=== PATIENT | female | born 1995 | race Two or more races ===

== ENCOUNTER 2024-04-24 12:34 | Emergency (ER) | payer OTHER, SELFPAY ==
[2024-04-24 12:37] VITALS: BP 127/86; PULSE 102; RESP 18; TEMP 36.6; O2SAT 97
--- NOTE | 2024-04-24 13:00 | PC.NURSE ---
PT NOW COMPLAINING OF CP
--- NOTE | 2024-04-24 13:04 | XR_ITS ---
Examination: CT abdomen and pelvis without contrast. Coronal 3-D reconstructions. Sagittal 2-D reconstructions. Date and time of exam:April 24, 2024 1502 hours Comparison June 2022 INDICATIONS: Left upper abdominal pain onset today CTDI: vol (mGy): 14 DLP: (mGycm): 865 Technique: Axial images of the abdomen have been obtained, 3 mm slice thickness Intravenous contrast material has not been administered. 2-D sagittal coronal reconstructions Low dose protocols were performed. One or more of the following dose reduction techniques were used; automated exposure control FINDINGS: Liver spleen intact No gallstones or pancreatic mass 2 mm mid to upper pole 1 mm lower pole nonobstructing left renal calculi, no hydronephrosis or ureteral calculi Aorta normal size No bowel obstruction Normal appendix No diverticulitis Multiple bilateral adnexal follicular type cysts Urinary bladder intact Intact osseous structures IMPRESSION: Tiny nonobstructing left renal calculi, no hydronephrosis or ureteral calculi Normal appendix Adnexal follicular cysts bilaterally
--- NOTE | 2024-04-24 13:05 | PD.EDRME ---
Rapid Medical Screening Exam RME Arrival date/time: 04/24/24 12:34 28-year-old female presents emergency department with abdominal pain with nausea and vomiting Chief Complaint: Abdominal Pain Time Seen by Provider: 04/24/24 12:47
[2024-04-24] MEDS: KETOROLAC INJ 30 MG/ML VIAL IM (13:22)
[2024-04-24] MEDS: METOCLOPRAMIDE INJ 5 MG/ML VIAL 2 ML 10 MG IM (13:23)
[2024-04-24 13:39] LABS: Basophils % (Auto) 0 % (0-2.5); Eosinophils % (Auto) 0 % (0-10); Hematocrit 44.9 % (36.0-46.0); Hemoglobin 15.5 g/dL (12.0-16.0); Immature Granulocytes % (Auto) 0 % (0-0); Immature Granulocytes Auto 0.02 Thou/mm3 (0.00-0.00); Lymphocytes # (Auto) 6.5 Thou/mm3 (1.0-4.8); Lymphocytes % (Auto) 51 % (10-50); Mean Corpuscular HGB Conc 34.5 g/dl (31.0-37.0); Mean Corpuscular Volume 84 fL (80-100); Monocytes # (Auto) 0.4 Thou/mm3 (0.0-0.8); Monocytes % (Auto) 3 % (0-12); Neutrophils # (Auto) 5.9 Thou/mm3 (1.8-7.7); Neutrophils % (Auto) 46 % (37-80); Nucleated Red Blood Cell % 0 /100 WBC (0); Platelet Count 394 Thou/mm3 (140-440); RDW Standard Deviation 38.8 fL (36.4-46.3); Red Blood Count 5.35 Miln/mm3 (4.00-5.20); White Blood Count 12.8 Thou/mm3 (3.6-11.0)
[2024-04-24 13:59] LABS: Alanine Aminotransferase 34 U/L (10-49); Albumin, Serum 5.1 gm/dL (3.5-5.0); Albumin/Globulin Ratio 1.5 (1.2-2.2); Alkaline Phosphatase 97 U/L (46-116); Anion Gap 9 (7-16); Aspartate Amino Transferase 23 U/L (0-34); BUN/Creatinine Ratio 19 Ratio (12-20); Bilirubin,Total 0.4 mg/dL (0.3-1.2); Blood Urea Nitrogen 15 mg/dL (9-23); Calcium 10.2 mg/dL (8.3-10.6); Calcium (Corrected) 10.2 mg/dL (8.5-10.1); Carbon Dioxide 24.9 mMol/L (20.0-31.0); Chloride 102 mMol/L (98-107); Creatinine (Component) 0.8 mg/dL (0.6-1.3); Globulin 3.4 gm/dL (2.3-3.5); Glucose 119 mg/dL (74-106); Lipase 39 U/L (12-53); Osmolality,Calculated 273 (275-295); Potassium 3.1 mMol/L (3.4-5.1); Sodium 136 mMol/L (136-145); Total Protein 8.5 gm/dL (5.7-8.2); Troponin I < 0.002 ng/mL (0.0-0.045); eGFR > 60 See Note
[2024-04-24 14:28] LABS: Collection Type, Urine Clean Catch
[2024-04-24 14:42] LABS: Bilirubin,Urine Negative (Negative); Blood,Urine Negative (Negative); Clarity,Urine Clear (Clear/Hazy); Color,Urine Lt-Yellow (Lt Yel-Yel); Culture Indicated,Urine Not Indicated; Glucose, Urine Negative (Negative); Ketones,Urine Negative (Negative); Leukocyte Esterase,Urine Negative (Negative); Nitrite,Urine Negative (Negative); PH,Urine 7.5 (5.0-7.0); Protein,Urine Negative (Neg - Trace); RBC,Urine 5 /hpf (0-3); Specific Gravity,Urine 1.021 (1.001-1.035); Squamous Epithelial Cell,Urine 3 /hpf (0-5); Urobilinogen,Urine Negative mg/dL (0.0-1.0); WBC,Urine 3 /hpf (0-5)
[2024-04-24 14:53] LABS: HCG Qualitative,Urine Negative
[2024-04-24 15:48] VITALS: BP 119/78; PULSE 77; RESP 19; TEMP 36.8; O2SAT 97
[2024-04-24 17:36] LABS: Path Review Blood Smear Sent to Pathologist
--- NOTE | 2024-04-24 18:37 | PD.EDABDPN ---
ED Abdominal Pain RME/HPI General Chief Complaint: Abdominal Pain Stated complaint: ABDOMINAL PAIN AND VOMITING Time seen by provider: 04/24/24 12:47 Arrival date/time: 04/24/24 12:34 28-year-old female presents emergency department complaining of diffuse lower abdominal pain with 1 episode of vomiting that started earlier today. Patient reports symptoms have now resolved. Patient denies any fever, chills, shortness of breath, cough, nausea vomiting, diarrhea, vaginal bleeding, or any other associated symptom. Source: patient Mode of arrival: ambulatory Limitations: no limitations RME / HPI RME / HPI narrative: 04/24/24 12:34 28-year-old female presents emergency department with abdominal pain with nausea and vomiting Related Data Home Medications ?Medication ?Instructions ?Recorded ?Confirmed folic acid 1 mg tablet 1 mg PO QDAY 06/20/19 11/06/19 vit no.95-ferrous 1 tab PO QDAY 06/20/19 11/06/19 fumarate 28 mg-folic acid 800 mcg tablet () sertraline 25 mg tablet (Zoloft) 25 mg PO QDAY 10/22/19 11/06/19 labetalol 100 mg tablet 100 mg PO BID 11/06/19 11/06/19 Previous Rx's ?Medication ?Instructions ?Recorded hydrocodone 5 mg-acetaminophen 325 1 tab PO Q6H PRN pain #30 tabs 11/06/19 mg tablet ([place]) naproxen 500 mg tablet (Naprosyn) 500 mg PO BID #30 tabs 06/19/22 Allergies Allergy/AdvReac Type Severity Reaction Status Date / Time No Known Allergies Allergy Verified 04/24/24 12:36 Review of Systems Review of Systems Systems Reviewed: All systems reviewed, normal except as documented Constitutional Constitutional: Reports system reviewed and no additional complaints, except as documented, Denies body ache(s), Denies chills and Denies fever(s) Eyes Eyes: Reports system reviewed and no additional complaints, except as documented and Denies change in vision ENT Ears, Nose, Mouth, and Throat: Reports system reviewed and no additional complaints, except as documented, Denies disequilibrium, Denies dizziness, Denies sore throat and Denies vertigo Cardiovascular Cardiovascular: Reports system reviewed and no additional complaints, except as documented, Denies chest pain and Denies dyspnea Respiratory Respiratory: Reports system reviewed and no additional complaints, except as documented, Denies chest congestion, Denies cough and Denies dyspnea Gastrointestinal Gastrointestinal: Reports system reviewed and no additional complaints, except as documented, Reports abdominal pain, Reports nausea and Reports vomiting Musculoskeletal Musculoskeletal: Reports system reviewed and no additional complaints, except as documented, Denies abnormal gait and Denies arthralgias Integumentary/Breasts Skin/Breast: Reports system reviewed and no additional complaints, except as documented, Denies erythema, Denies rash and Denies wounds Neurologic Neurologic: Reports system reviewed and no additional complaints, except as documented, Denies abnormal gait, Denies disequilibrium, Denies dizziness and Denies vertigo Past Medical History Past Medical History NEUROLOGIC: Negative Neurological Disorders or Seizures CARDIAC: Positive Cardiac Disorders and Hypertension; Negative Congestive Heart Failure RESPIRATORY: Negative Chronic Obstructive Pulmonary Disease (COPD) or Asthma GASTROINTESTINAL: Negative Gastrointestinal Disorders GENITOURINARY: Negative Genitourinary Disorders or Renal Disease MUSCULOSKELETAL: Negative Musculoskeletal Disorders ENDOCRINE: Negative Endocrine Disorders, Diabetes Mellitus Type 1 or Diabetes Mellitus Type 2 HEMATOLOGIC: Negative Blood Disorders or Sickle Cell Disease PSYCHO/SOCIAL: Positive Anxiety OTHER HISTORY: Negative Hospitalization, Autoimmune Disease, Down Syndrome, Developmental Delay, Falls, Blood Transfusions, Blood Transfusion Reaction or Anesthesia Reactions Family History FAMILY HISTORY: Negative Family Psychiatric Problems, Family Respiratory Disorders, Family Cardiac Disorders, Family Gastrointestinal Problems, Family Cancer, Family Surgery or Family Anesthesia Reaction Surgical History SURGICAL: Negative Section Social History SMOKING STATUS: Never smoker ED Exam General Limitations: Present no limitations General appearance: Present alert and in no apparent distress Head Head exam: Present atraumatic Eye Eye exam: Present normal appearance, PERRL and EOMI ENT ENT exam: Present normal exam, normal oropharynx and mucous membranes moist Neck Neck exam: Present normal inspection, full ROM and trachea midline Chest Chest inspection: Present normal inspection and symmetric chest wall rise Respiratory Respiratory exam: Present normal lung sounds bilaterally Cardiovascular Cardiovascular exam: Present regular rate, normal rhythm and normal heart sounds Abdominal Exam Abdominal exam: Present soft and normal bowel sounds; Absent tenderness or tenderness at McBurney's Point Extremities Exam Extremities exam: Present normal inspection and full ROM Back Exam Back exam: Present normal inspection and full ROM Neurological Exam Neurological exam: Present alert, oriented X3 and CN II-XII intact Psychiatric Psychiatric exam: Present normal affect and normal mood Skin Skin exam: Present warm, dry, intact and normal color Course Quality Measures none Orders Category Date Time Status EKG (ED ONLY) *Do not use* NOW Care 04/24/24 13:[address] abdomen pelvis wo con Stat Exams 04/24/24 13:04 Completed EKG (ED Only) Stat Exams 04/24/24 13:01 Ordered CBC Stat Lab 04/24/24 13:11 Completed Comprehensive Metabolic Panel Stat Lab 04/24/24 13:11 Completed HCG Qualitative,Urine Stat Lab 04/24/24 13:53 Completed Lipase Stat Lab 04/24/24 13:11 Completed Path Review Blood Smear Stat Lab 04/24/24 13:11 Completed Troponin I Stat Lab 04/24/24 13:11 Completed UA, C/S IF [Urinalysis, C/S if Indicated] Stat Lab 04/24/24 13:53 Completed Ketorolac Inj [Toradol Inj] Med 04/24/24 13:18 Discontinued 30 mg IM X1 ONE Metoclopramide Inj [Reglan Inj] Med 04/24/24 13:04 Discontinued 10 mg IM X1 ONE Vital Signs Vital signs: Vital Signs Temperature 97.8 F 04/24/24 12:37 Pulse Rate 102 H 04/24/24 12:37 Respiratory Rate 18 04/24/24 12:37 Blood Pressure 127/86 H 04/24/24 12:37 Pulse Oximetry (%) 97 04/24/24 12:37 Oxygen Delivery Method Room Air 04/24/24 12:37 97% room air within normal limits Abdominal Pain MDM MDM Narrative MDM Narrative:: 28-year-old female presents emergency department complaining of diffuse lower abdominal pain with 1 episode of vomiting that started earlier today. Patient reports symptoms have now resolved. Patient denies any fever, chills, shortness of breath, cough, nausea vomiting, diarrhea, vaginal bleeding, or any other associated symptom. Patient appears nontoxic and hemodynamically stable. Patient's abdomen is soft and nontender. CBC mild leukocytosis. CMP was unremarkable other than mild hypokalemia. Troponin within normal limits. Urinalysis was unremarkable. CT abdomen and pelvis findings bilateral adnexal follicular cysts. On exam patient reported complete resolution of pain. Patient discharged home and instructed to follow-up with primary care provider and request referral to [facility] if symptoms persist. Instructed to return to emergency department for any worsening symptoms or as needed. Patient data External records reviewed:: [facility] previous records Clinical information provided by:: patient Social determinants that could affect healthcare access:: none Patient has the following chronic illnesses:: See chart How is presenting disease/condition affected by chronic disease/condition?: uneffected by Evaluation data The following diagnostics were reviewed and interpreted by me:: lab results and radiology exam(s) Lab and/or radiology exams considered but not ordered:: Ordered Interpretation Summary: Interpreted by me Medications / Prescriptions Medications or Prescriptions considered but not ordered:: Ordered Medication administrations:: Medication Administration History Discontinued Medications Ketorolac Tromethamine (Ketorolac Inj 30 Mg/Ml Vial) 30 mg IM X1 ONE Stop: 04/24/24 13:19 Last Admin: 04/24/24 13:22 Dose: 30 mg Documented By: ARF Metoclopramide HCl (Metoclopramide Inj 5 Mg/Ml Vial 2 Ml) 10 mg IM X1 ONE; Protocol Stop: 04/24/24 13:05 Last Admin: 04/24/24 13:23 Dose: 10 mg Documented By: ARF Given Consultations Consultation(s) initiated? (list below): No Diagnosis Differential diagnosis abdominal pain: abdominal pain, acute appendicitis and calculus of kidney Most likely diagnosis given after review of the tests above:: Follicular cyst Admission Indicated Admission indicated?: not indicated Admission Request Was there a request for admission?: No Disposition Plan Disposition Plan: Discharge Discharge Attestation Discharge Attestation: The patient and all family members were given an opportunity to ask questions and understood the discharge instructions. Discharge instructions specifically effects, indications for sooner follow up or return to the emergency department, and the expected course of current diagnosis. Patient condition: Stable Discharge Plan Plan Patient Disposition: HOME (Self Care) Disposition Comment: Stable Prescriptions/Referrals Prescriptions/Med Rec: No Action folic acid 1 mg Tablet 1 mg PO QDAY PNV cmb#95-ferrous fumarate-FA [] 28 mg iron- 800 mcg Tablet 1 tab PO QDAY sertraline [Zoloft] 25 mg Tablet 25 mg PO QDAY labetalol 100 mg Tablet 100 mg PO BID hydrocodone-acetaminophen [[place]] 5-325 mg tablet 1 tab PO Q6H MDD 4 PRN (Reason: pain) Qty: 30 0RF naproxen [Naprosyn] 500 mg tablet 500 mg PO BID Qty: 30 0RF Referrals: Hanny Gaffney PA-C [Primary Care Provider] - In 1 week Problem List Clinical Impression: Follicular cyst of ovary Patient/Caregiver Discharge Instructions Discharge Activity: activity as tolerated Education Materials: Treatment for Ovarian Cysts, ED Ovarian Cyst Additional Instructions: Take [id number] Tylenol or ibuprofen as needed for pain. Follow-up with primary care provider and request referral to [facility] for repeat ultrasound of follicular cyst if symptoms persist. Return to emergency department for any worsening symptoms or as needed. Print Language: Indonesian Stand Alone Forms: Sharon Award Info., Work/School Release, Patient Portal Info Letter MD Attestation MD Attestation The patient was seen by the midlevel practitioner. I, the co-signing physician, was present during the entire ER visit. While I did not physically examine the patient, I was available for consultation as needed.
== END 2024-04-24 18:48 | disposition home or self-care (01) ==
PROVIDERS: Nurse Practitioner Primary Care; Emergency Provider Emergency Medicine; PCP Physician Assistant
DX: N83.02 Follicular cyst of left ovary (principal); N83.01 Follicular cyst of right ovary; I44.5 Left posterior fascicular block; I10 Essential (primary) hypertension
CPT/HCPCS: 36415; 74176; 80053; 81001; 81025; 83690; 84484; 85025; 93005; 96372; 99284; J1885; J2765

== ENCOUNTER → 2024-08-26 | Outpatient (CLI) | payer OTHER, SELFPAY ==
--- NOTE | 2024-08-26 15:47 | XR_ITS ---
EXAMINATION: Ankle, right 3 views . Technique: Ankle AP, oblique, lateral 3 views Date and time of exam: August 26, 2024 1642 hrs. Indications:. Ankle today, ankle pain. Findings: No acute fracture No ankle dislocation Ossification in the Achilles insertion Impression: No acute fracture
== END | disposition home or self-care (01) ==
PROVIDERS: PCP Physician Assistant; Referring Provider Family Medicine; Visit Provider Family Medicine
DX: S93.491A Sprain of other ligament of right ankle, initial encounter (principal); X58.XXXA Exposure to other specified factors, initial encounter
CPT/HCPCS: 73610

== ENCOUNTER 2024-09-16 13:00 | Emergency (ER) | payer OTHER, SELFPAY ==
[2024-09-16 13:16] VITALS: BP 143/96; PULSE 96; RESP 18; TEMP 37.1; O2SAT 96; BMI 44.2
--- NOTE | 2024-09-16 13:21 | EDNOTE_ITS ---
<Statement entered by Shyla Rhoades MD - 09/16/24 17:56> As co-signing physician, I was present and available for consult prn. I concur with the plan and care as documented by the midlevel provider. ED Chest Pain RME/HPI General Chief Complaint: General Adult/Misc Complain Stated Complaint: TINGLING LEFT CHEST AND FACE, HX OF ANXIETY Time Seen by Provider: 09/16/24 13:23 Source: patient Arrival date/time: 09/16/24 13:00 29-year-old female with a history of hypertension presents to the emergency room with a chief complaint of left-sided chest pain and tingling to the left arm and face x 1 day Mode of arrival: ambulatory Limitations: no limitations Related Data Home Medications ?Medication ?Instructions ?Recorded ?Confirmed folic acid 1 mg tablet 1 mg PO QDAY 06/20/19 vit no.95-ferrous 1 tab PO QDAY 06/20/1910/11 fumarate 28 mg-folic acid 800 mcg tablet () sertraline 25 mg tablet (Zoloft) 25 mg PO QDAY 0 11/06/19 labetalol 100 mg tablet 100 mg PO BID 11/06/1911/05 Previous Rx's ?Medication ?Instructions ?Recorded hydrocodone 5 mg-acetaminophen 325 1 tab PO Q6H PRN pa in #30 tabs 11/06/19 mg tablet ([place]) naproxen 500 mg tablet (Naprosyn) 500 mg PO BID #30 ta bs 06/19/22 Allergies Allergy/AdvReac Type Severity Reaction Status Date / Time No Known Allergies Allergy Verified 09/16/24 13:04 Review of Systems Review of Systems Systems Reviewed: All systems reviewed, normal except as documented Constitutional Constitutional: Reports system reviewed and no additional complaints, except as documented, Denies fatigue, Denies fever(s), Denies headache(s) and Denies weakness Eyes Eyes: Reports system reviewed and no additional complaints, except as documented, Denies blurry vision and Denies change in vision ENT Ears, Nose, Mouth, and Throat: Reports system reviewed and no additional complaints, except as documented, Denies otalgia, Denies headache(s), Denies nasal congestion, Denies throat swelling and Denies vertigo Cardiovascular Cardiovascular: Reports system reviewed and no additional complaints, except as documented, Reports chest pain, Reports chest pain at rest, Denies dyspnea, Denies dyspnea on exertion, Reports irregular heart rhythm and Reports radiating jaw, neck or arm pain Respiratory Respiratory: Reports system reviewed and no additional complaints, except as documented, Denies chest congestion, Denies cough, Denies dyspnea, Denies dyspnea on exertion and Denies wheezing Gastrointestinal Gastrointestinal: Reports system reviewed and no additional complaints, except as documented, Denies abdominal pain, Denies cramping, Denies nausea and Denies vomiting Genitourinary Genitourinary: Reports system reviewed and no additional complaints, except as documented Musculoskeletal Musculoskeletal: Reports system reviewed and no additional complaints, except as documented and Denies back pain Integumentary/Breasts Skin/Breast: Reports system reviewed and no additional complaints, except as documented and Denies wounds Neurologic Neurologic: Reports system reviewed and no additional complaints, except as documented, Denies confusion, Denies headache(s), Denies lack of coordination, Denies vertigo and Denies weakness Psychiatric Psychiatric: Reports system reviewed and no additional complaints, except as documented, Denies anxiety, Denies confusion, Denies depression, Denies paranoia, Denies suicidal ideation and Denies tactile hallucinations Endocrine Endocrine: Reports system reviewed and no additional complaints, except as documented and Denies fatigue Hematologic/Lymphatic Hematologic/Lymphatic: Reports system reviewed and no additional complaints, except as documented and Denies lymphadenopathy Allergic/Immunologic Allergic/Immunologic: Reports system reviewed and no additional complaints, except as documented, Denies throat swelling, Denies urticaria and Denies wheezing Past Medical History Past Medical History NEUROLOGIC: Negative Neurological Disorders or Seizures CARDIAC: Positive Cardiac Disorders and Hypertension; Negative Congestive Heart Failure RESPIRATORY: Negative Chronic Obstructive Pulmonary Disease (COPD) or Asthma GASTROINTESTINAL: Negative Gastrointestinal Disorders GENITOURINARY: Negative Genitourinary Disorders or Renal Disease MUSCULOSKELETAL: Negative Musculoskeletal Disorders ENDOCRINE: Negative Endocrine Disorders, Diabetes Mellitus Type 1 or Diabetes Mellitus Type 2 HEMATOLOGIC: Negative Blood Disorders or Sickle Cell Disease PSYCHO/SOCIAL: Positive Anxiety OTHER HISTORY: Negative Hospitalization, Autoimmune Disease, Down Syndrome, Developmental Delay, Falls, Blood Transfusions, Blood Transfusion Reaction or Anesthesia Reactions Family History FAMILY HISTORY: Negative Family Psychiatric Problems, Family Respiratory Disorders, Family Cardiac Disorders, Family Gastrointestinal Problems, Family Cancer, Family Surgery or Family Anesthesia Reaction Surgical History SURGICAL: Negative Section Social History SMOKING STATUS: Never smoker ED Exam General Limitations: Present no limitations General appearance: Present alert and in no apparent distress Head Head exam: Present atraumatic Eye Eye exam: Present normal appearance, PERRL and EOMI ENT ENT exam: Present normal exam, normal oropharynx and mucous membranes moist Neck Neck exam: Present normal inspection, full ROM and trachea midline Chest Chest inspection: Present normal inspection and symmetric chest wall rise Respiratory Respiratory exam: Present normal lung sounds bilaterally; Absent respiratory distress, wheezes, stridor, accessory muscle use or prolonged expiratory phase Cardiovascular Cardiovascular exam: Present regular rate, normal rhythm, normal heart sounds, +S1 and +S2; Absent bradycardia, tachycardia, irregular rhythm, systolic murmur, diastolic murmur, rubs, gallop, clicks or JVD Abdominal Exam Abdominal exam: Present soft and normal bowel sounds Extremities Exam Extremities exam: Present normal inspection and full ROM Back Exam Back exam: Present normal inspection and full ROM Neurological Exam Neurological exam: Present alert, oriented X3 and CN II-XII intact Psychiatric Psychiatric exam: Present normal affect and normal mood Skin Skin exam: Present warm, dry, intact and normal color Course Quality Measures none Orders Category Date Time Status EKG (ED ONLY) *Do not use* NOW Care 09/16/24 13:21 Completed EKG (ED Only) Stat Exams 09/16/24 13:21 Draft B-Type Natriuretic Peptide Stat Lab 09/16/24 13:40 Completed CBC Stat Lab 09/16/24 13:40 Completed Comprehensive Metabolic Panel Stat Lab 09/16/24 13:40 Completed Drug Screen,Urine Stat Lab 09/16/24 13:55 Completed Magnesium Stat Lab 09/16/24 13:40 Completed Partial Thromboplastin Time Stat Lab 09/16/24 13:40 Completed Prothrombin Time with INR Stat Lab 09/16/24 13:40 Completed Troponin I Stat Lab 09/16/24 13:40 Completed Urinalysis Stat Lab 09/16/24 13:55 Completed Vital Signs Vital signs: Vital Signs Temperature 98.8 F 09/16/24 13:16 Pulse Rate 96 09/16/24 13:16 Respiratory Rate 18 09/16/24 13:16 Blood Pressure 143/96 H 09/16/24 13:16 Pulse Oximetry (%) 96 09/16/24 13:16 Oxygen Delivery Method Room Air 09/16/24 13:16 Chest Pain MDM Narrative MDM Narrative:: 29-year-old female with a history of hypertension presents to the emergency room with a chief complaint of left-sided chest pain and tingling to the left arm and face x 1 day Patient is hemodynamically stable and in no apparent distress. She is not tachycardic not tachypneic afebrile and O2 saturation is 96% on room air Lung sounds are clear bilaterally there is no wheezing there is no abnormal breath sounds. S1 and S2 noted the patient has a strong and regular rhythm EKG was completed and shows normal sinus rhythm. CBC CMP and troponin were all negative for any acute findings. Patient was discharged and educated to follow-up with primary care provider in the next 24 to 48 hours and return to the emergency room for any evidence of worsening signs or symptoms Patient data External records reviewed:: [facility] previous records Clinical information provided by:: patient Social determinants that could affect healthcare access:: none Patient has the following chronic illnesses:: No chronic illness no chronic illness How is presenting disease/condition affected by chronic disease/condition?: no chronic disease Evaluation data The following diagnostics were reviewed and interpreted by me:: lab results and radiology exam(s) Lab and/or radiology exams considered but not ordered:: Labs and radiology exams considered and ordered Interpretation Summary: N/A Medications / Prescriptions Medications or Prescriptions considered but not ordered:: No medication given Medication administrations:: No medication given Consultations Consultation(s) initiated? (list below): No Diagnosis Chest Pain Differential Diagnosis: stable angina, atypical chest pain, st elevation myocardial infarction, costochondritis and chest pain Most likely diagnosis given after review of the tests above:: Chest pain Admission Indicated Admission indicated?: not indicated Admission Request Was there a request for admission?: No Disposition Plan Disposition Plan: Discharge Discharge Attestation Discharge Attestation: The patient and all family members were given an opportunity to ask questions and understood the discharge instructions. Discharge instructions specifically effects, indications for sooner follow up or return to the emergency department, and the expected course of current diagnosis. Patient condition: Stable Discharge Plan Plan Patient Disposition: HOME (Self Care) Disposition Comment: Stable Prescriptions/Referrals Prescriptions/Med Rec: No Action folic acid 1 mg Tablet 1 mg PO QDAY PNV b#95-ferrous fumarate-FA [] 28 mg iron- 800 mcg Tablet 1 tab PO QDAY sertraline [Zoloft] 25 mg Tablet 25 mg PO QDAY labetalol 100 mg Tablet 100 mg PO BID hydrocodone-acetaminophen [[place]] 5-325 mg tablet 1 tab PO Q6H MDD 4 PRN (Reason: pain) Qty: 30 0RF naproxen [Naprosyn] 500 mg tablet 500 mg PO BID Qty: 30 0RF Referrals: Hanny Gaffney PA-C [Primary Care Provider] - In 1 week Problem List Clinical Impression: Chest pain, non-cardiac Patient/Caregiver Discharge Instructions Education Materials: ED Chest Pain, Noncardiac Additional Instructions: Please follow-up with your primary care provider in the next 24 to 48 hours. Your cardiac examination was within normal limits. At this time your cardiac pain is not related to your heart For any evidence of worsening sign or symptom return to the emergency room immediately Print Language: Macedonian Stand Alone Forms: Sharon Award Info., Patient Portal Info Letter PA/KELLY Supervising Physician BJ/KELLY Supervising Physician: Dr. RHOADES
--- NOTE | 2024-09-16 13:21 | EKG_ITS ---
[facility], [place] Test Date: 2024-09-16 Pat Name: MARINA VILLALOBOS Department: Room: - Gender: Female [employer] Director: : 1995 Requested By: Alex Taylor Order Number: [id number] Reading MD: Alex Taylor Measurements Intervals [place] Rate: 96 P: 16 TN: 162 QRS: 81 QRSD: 97 T: 14 QT: 339 QTc: 429 Interpretive Statements SINUS RHYTHM Compared to ECG 11/28/2023 15:13:46 Sinus tachycardia no longer present Left posterior fascicular block no longer present /store/S0/[id number]
[2024-09-16 14:00] LABS: Basophils % (Auto) 0 % (0-2.5); Eosinophils # (Auto) 0.1 Thou/mm3 (0.0-0.5); Eosinophils % (Auto) 1 % (0-10); Hematocrit 40.3 % (36.0-46.0); Hemoglobin 14.1 g/dL (12.0-16.0); Immature Granulocytes % (Auto) 0 % (0-0); Immature Granulocytes Auto 0.03 Thou/mm3 (0.00-0.00); Lymphocytes # (Auto) 3.1 Thou/mm3 (1.0-4.8); Lymphocytes % (Auto) 27 % (10-50); Mean Corpuscular Hemoglobin 29.3 pg (25.0-35.0); Mean Corpuscular Volume 84 fL (80-100); Monocytes # (Auto) 0.6 Thou/mm3 (0.0-0.8); Monocytes % (Auto) 5 % (0-12); Neutrophils # (Auto) 7.8 Thou/mm3 (1.8-7.7); Neutrophils % (Auto) 67 % (37-80); Nucleated Red Blood Cell % 0 /100 WBC (0); Platelet Count 367 Thou/mm3 (140-440); RDW Standard Deviation 38.8 fL (36.4-46.3); Red Blood Count 4.81 Miln/mm3 (4.00-5.20); White Blood Count 11.5 Thou/mm3 (3.6-11.0)
[2024-09-16 14:15] LABS: Collection Type, Urine Clean Catch; Squamous Epithelial Cell,Urine 0 /hpf (0-5)
[2024-09-16 14:17] LABS: B-Type Natriuretic Peptide 22 pg/mL (0-100)
[2024-09-16 14:19] LABS: Alanine Aminotransferase 20 U/L (10-49); Albumin, Serum 4.3 gm/dL (3.5-5.0); Albumin/Globulin Ratio 1.3 (1.2-2.2); Alkaline Phosphatase 81 U/L (46-116); Anion Gap 9 (7-16); Aspartate Amino Transferase 20 U/L (0-34); BUN/Creatinine Ratio 17 Ratio (12-20); Bilirubin,Total 0.3 mg/dL (0.3-1.2); Blood Urea Nitrogen 12 mg/dL (9-23); Calcium 9.7 mg/dL (8.3-10.6); Calcium (Corrected) 9.7 mg/dL (8.5-10.1); Carbon Dioxide 25.1 mMol/L (20.0-31.0); Chloride 103 mMol/L (98-107); Creatinine (Component) 0.7 mg/dL (0.6-1.3); Globulin 3.3 gm/dL (2.3-3.5); Glucose 109 mg/dL (74-106); Magnesium 1.8 mg/dL (1.6-2.6); Osmolality,Calculated 274 (275-295); Potassium 3.7 mMol/L (3.4-5.1); Sodium 137 mMol/L (136-145); Total Protein 7.6 gm/dL (5.7-8.2); Troponin I < 0.002 ng/mL (0.0-0.045); eGFR > 60 See Note
[2024-09-16 14:23] LABS: Partial Thromboplastin Time 27.5 Seconds (22.0-36.0)
[2024-09-16 14:29] LABS: Bilirubin,Urine Negative (Negative); Blood,Urine Negative (Negative); Clarity,Urine Clear (Clear/Hazy); Color,Urine Colorless (Lt Yel-Yel); Glucose, Urine Negative (Negative); Ketones,Urine Negative (Negative); Leukocyte Esterase,Urine Negative (Negative); Nitrite,Urine Negative (Negative); Protein,Urine Negative (Neg - Trace); RBC,Urine 1 /hpf (0-3); Specific Gravity,Urine 1.012 (1.001-1.035); Urobilinogen,Urine Negative mg/dL (0.0-1.0); WBC,Urine < 1 /hpf (0-5)
[2024-09-16 14:45] LABS: Amphetamine/Methamp Scrn,U Negative (Negative); Barbiturate Screen,Urine Negative (Negative); Benzodiazepines Screen,Urine Negative (Negative); Benzoylecgonine Screen, Ur Negative (Negative); Fentanyl Screen,Urine Negative (Negative); Opiate Screen,Urine Negative (Negative); THC Screen,Urine Negative (Negative)
== END 2024-09-16 14:50 | disposition home or self-care (01) ==
PROVIDERS: Nurse Practitioner Family; Emergency Provider Emergency Medicine; PCP Physician Assistant
DX: R07.89 Other chest pain (principal); I10 Essential (primary) hypertension
CPT/HCPCS: 36415; 80053; 80307; 81001; 83735; 83880; 84484; 85025; 85610; 85730; 93005; 99283

== ENCOUNTER 2025-03-12 01:44 | Emergency (ER) | payer OTHER, SELFPAY ==
[2025-03-12 01:45] VITALS: BP 131/88; PULSE 118; RESP 18; TEMP 36.9; O2SAT 97; BMI 40.7
--- NOTE | 2025-03-12 01:55 | XR_ITS ---
Examination: CT abdomen and pelvis without contrast. Coronal 3-D reconstructions. Sagittal 2-D reconstructions. Date and time of exam:March 12, 2025, 1414 hrs., Comparison April 24, 2024 Indications: Onset flank pain abdominal pain with urination today, history left kidney stones on CT April 24, 2024 CTDI: vol (mGy): 13.8 DLP: (mGycm): 787 Technique: Axial images of the abdomen have been obtained, 3 mm slice thickness Intravenous contrast material has not been administered. Low dose protocols were performed. One or more of the following dose reduction techniques were used; automated exposure control, adjustment of the mA and/or KV according to patient size, use of iterative reconstruction technique. Findings: Diffuse fatty infiltration throughout the liver, no focal liver or splenic lesions No gallstones No pancreatic or adrenal mass Tiny 1 to 2 mm left renal calculi, no hydronephrosis or ureteral calculi Aorta normal size Normal appendix No bowel obstruction No pelvic mass Contracted urinary bladder Moderate degenerative disc disease L5-S1 Impression: Nonobstructing left renal calculi, no hydronephrosis or ureteral calculi. Normal appendix. No bladder mass or bladder calculi.
--- NOTE | 2025-03-12 01:56 | EDRME_ITS ---
Rapid Medical Screening Exam [facility] Arrival date/time: 03/12/25 01:44 29F with history of kidney stones presents to ED with 5 days of dysuria and back/ab pain, as well as some N/V. Patient went to PCP today and was started on Bactrim. Chief Complaint: Abdominal Pain Vital signs: Vital Signs Temperature 98.4 F 03/12/25 01:45 Pulse Rate 118 H 03/12/25 01:45 Respiratory Rate 18 03/12/25 01:45 Blood Pressure 131/88 H 03/12/25 01:45 Pulse Oximetry (%) 97 03/12/25 01:45 Oxygen Delivery Method Room Air 03/12/25 01:45
[2025-03-12 02:08] LABS: Bilirubin,Urine Negative (Negative); Blood,Urine 1+ (Negative); Clarity,Urine Clear (Clear/Hazy); Collection Type, Urine Clean Catch; Color,Urine Yellow (Lt Yel-Yel); Culture Indicated,Urine Not Indicated; Glucose, Urine Negative (Negative); Ketones,Urine Trace (Negative); Leukocyte Esterase,Urine Positive (Negative); Nitrite,Urine Negative (Negative); PH,Urine 6.0 (5.0-7.0); Protein,Urine Trace (Neg - Trace); RBC,Urine 14 /hpf (0-3); Specific Gravity,Urine 1.031 (1.001-1.035); Squamous Epithelial Cell,Urine 1 /hpf (0-5); Urobilinogen,Urine Negative mg/dL (0.0-1.0); WBC,Urine 2 /hpf (0-5)
[2025-03-12 02:25] LABS: Lactate (Lactic Acid) 1.4 mMol/L (0.4-2.0)
[2025-03-12 02:29] LABS: Basophils # (Auto) 0.0 Thou/mm3 (0.0-0.2); Basophils % (Auto) 0 % (0-2.5); Eosinophils # (Auto) 0.0 Thou/mm3 (0.0-0.5); Eosinophils % (Auto) 0 % (0-10); Hematocrit 46.3 % (36.0-46.0); Hemoglobin 15.7 g/dL (12.0-16.0); Immature Granulocytes Auto 0.06 Thou/mm3 (0.00-0.00); Lymphocytes # (Auto) 3.7 Thou/mm3 (1.0-4.8); Lymphocytes % (Auto) 21 % (10-50); Mean Corpuscular HGB Conc 33.9 g/dl (31.0-37.0); Mean Corpuscular Hemoglobin 29.3 pg (25.0-35.0); Mean Corpuscular Volume 86 fL (80-100); Monocytes # (Auto) 0.7 Thou/mm3 (0.0-0.8); Monocytes % (Auto) 4 % (0-12); Neutrophils # (Auto) 13.4 Thou/mm3 (1.8-7.7); Neutrophils % (Auto) 75 % (37-80); Nucleated Red Blood Cell # 0.00 Thou/mm3 (0.00-0.00); Nucleated Red Blood Cell % 0 /100 WBC (0); Platelet Count 369 Thou/mm3 (140-440); RDW Standard Deviation 40.1 fL (36.4-46.3); Red Blood Count 5.36 Miln/mm3 (4.00-5.20); White Blood Count 17.9 Thou/mm3 (3.6-11.0)
[2025-03-12] MEDS: ONDANSETRON ODT 4 MG TABRAP PO (02:41)
[2025-03-12] MEDS: KETOROLAC INJ 60 MG/2 ML VIAL IM (02:41)
--- NOTE | 2025-03-12 02:49 | PC.NURSE ---
WE HAD DOWN TIME FROM [id number].
--- NOTE | 2025-03-12 03:15 | PD.EDABDPN ---
ED Abdominal Pain RME/HPI General Chief Complaint: Abdominal Pain Stated complaint: ABDOMINAL PAIN, PAIN WITH URINATION Arrival date/time: 03/12/25 01:44 RME / HPI RME / HPI narrative: 03/12/25 01:44 29F with history of kidney stones presents to ED with 5 days of dysuria and back/ab pain, as well as some N/V. Patient went to PCP today and was started on Bactrim. Dr. Young?s Main ED Evaluation: 29yo female presents to the ED for a chief complaint of sudden left-sided abdominal pain x 2300. Patient states her pain got progressively worse and she was unable to tolerate it, so she came in for evaluation. Patient reports associated nausea and vomiting. Patient notes she was told she had a UTI and yeast infection today by her PCP and was started on Bactrim. Denies any fever, chills, or any other associated symptoms. NKA. Related Data Home Medications ?Medication ?Instructions ?Recorded ?Confirmed folic acid 1 mg tablet 1 mg PO QDAY 06/20/19 11/06/19 vit no.95-ferrous 1 tab PO QDAY 06/20/19 11/06/19 fumarate 28 mg-folic acid 800 mcg tablet () sertraline 25 mg tablet (Zoloft) 25 mg PO QDAY 10/22/19 11/06/19 labetalol 100 mg tablet 100 mg PO BID 11/06/19 11/06/19 Previous Rx's ?Medication ?Instructions ?Recorded hydrocodone 5 mg-acetaminophen 325 1 tab PO Q6H PRN pain #30 tabs 11/06/19 mg tablet ([place]) naproxen 500 mg tablet (Naprosyn) 500 mg PO BID #30 tabs 06/19/22 Allergies Allergy/AdvReac Type Severity Reaction Status Date / Time No Known Allergies Allergy Verified 09/16/24 13:04 Review of Systems Review of Systems Systems Reviewed: All systems reviewed, normal except as documented Past Medical History Past Medical History NEUROLOGIC: Negative Neurological Disorders or Seizures CARDIAC: Positive Cardiac Disorders and Hypertension; Negative Congestive Heart Failure RESPIRATORY: Negative Chronic Obstructive Pulmonary Disease (COPD) or Asthma GASTROINTESTINAL: Negative Gastrointestinal Disorders GENITOURINARY: Negative Genitourinary Disorders or Renal Disease MUSCULOSKELETAL: Negative Musculoskeletal Disorders ENDOCRINE: Negative Endocrine Disorders, Diabetes Mellitus Type 1 or Diabetes Mellitus Type 2 HEMATOLOGIC: Negative Blood Disorders or Sickle Cell Disease PSYCHO/SOCIAL: Positive Anxiety OTHER HISTORY: Negative Hospitalization, Autoimmune Disease, Down Syndrome, Developmental Delay, Falls, Blood Transfusions, Blood Transfusion Reaction or Anesthesia Reactions Family History FAMILY HISTORY: Negative Family Psychiatric Problems, Family Respiratory Disorders, Family Cardiac Disorders, Family Gastrointestinal Problems, Family Cancer, Family Surgery or Family Anesthesia Reaction Surgical History SURGICAL: Negative Section Social History SMOKING STATUS: Never smoker ED Exam Narrative Physical exam: Generally patient is alert and in no obvious distress, heart regular rate and rhythm, lungs clear to auscultation equal bilaterally, abdomen soft bowel sounds present nondistended left mid abdominal tenderness without rebound, musculoskeletal exam showed no costovertebral angle tenderness, skin is warm pale and dry, neurologic exam Mago Coma Scale is 15. Course Quality Measures none Orders Category Date Time Status CT abdomen pelvis wo con Stat Exams 03/12/25 01:55 Taken CBC Stat Lab 03/12/25 02:03 Completed CMP [Comprehensive Metabolic Panel] Stat Lab 03/12/25 02:03 Received Lactate (Lactic Acid) Stat Lab 03/12/25 02:03 Completed Lipase Stat Lab 03/12/25 02:03 Received Procalcitonin Stat Lab 03/12/25 02:03 Received Urinalysis, C/S if Indicated Stat Lab 03/12/25 01:59 Completed Ketorolac Inj [Toradol Inj] Med 03/12/25 01:55 Discontinued 60 mg IM X1 ONE Ondansetron Odt [Zofran Odt] Med 03/12/25 01:55 Discontinued 4 mg PO X1 ONE Vital Signs Vital signs: Vital Signs Temperature 98.4 F 03/12/25 01:45 Pulse Rate 118 H 03/12/25 01:45 Respiratory Rate 18 03/12/25 01:45 Blood Pressure 131/88 H 03/12/25 01:45 Pulse Oximetry (%) 97 03/12/25 01:45 Oxygen Delivery Method Room Air 03/12/25 01:45 Abdominal Pain MDM MDM Narrative MDM Narrative:: Scribe Attestation: 03/12/25 - Coby Velez am scribing for and in the presence of Dr. Young. I interpreted all labs. Urine is not infected. There is a leukocytosis of 17,900 of uncertain significance. The abdominal exam was quite benign. CT scan done of the abdomen and pelvis without contrast showed a nonobstructing left renal stone. No evidence of ureterolithiasis. No hydronephrosis. Patient was just started on Bactrim for antibiotics for urinary tract infection however the urine is not infected so she can stop the Bactrim. Patient data External records reviewed:: [facility] previous records (Per chart review, patient was seen here on 09/16/24 for noncardiac chest pain.) Clinical information provided by:: patient Social determinants that could affect healthcare access:: none Patient has the following chronic illnesses:: HTN How is presenting disease/condition affected by chronic disease/condition?: uneffected by Evaluation data The following diagnostics were reviewed and interpreted by me:: lab results and radiology exam(s) Lab and/or radiology exams considered but not ordered:: none Interpretation Summary: CT scan of the abdomen and pelvis without intravenous contrast (axial sections with sagittal and coronal reformats) March 12, 2025 at 0214 hours Clinical History: Abdominal/flank pain. Comparison: No prior study is available for comparison. Findings: The lung bases are clear. Liver, gallbladder, spleen, adrenal glands and pancreas are normal. Nonobstructing left renal calculus. The ureters are normal. No hydronephrosis bilaterally. The appendix is normal, best seen on image 179. Bowel caliber is normal. Colonic fluid levels are noted. Mild para-aortic lymphadenopathy. The urinary bladder is decompressed, limiting evaluation. There is no adnexal cyst or mass. The abdominal wall is unremarkable. No acute osseous process. Impression: Nonobstructing left renal calculus. No hydronephrosis. Colonic fluid levels, may represent enterocolitis. This report has been electronically signed by: Yehuda Logan MD. Medications / Prescriptions Medications or Prescriptions considered but not ordered:: none Medication administrations:: Medication Administration History Discontinued Medications Ketorolac Tromethamine (Ketorolac Inj 60 Mg/2 Ml Vial) 60 mg IM X1 ONE Stop: 03/12/25 01:56 Last Admin: 03/12/25 02:41 Dose: 60 mg Documented By: DT Ondansetron HCl (Ondansetron Odt 4 Mg Tabrap) 4 mg PO X1 ONE; Protocol Stop: 03/12/25 01:56 Last Admin: 03/12/25 02:41 Dose: 4 mg Documented By: DT see above Consultations Consultation(s) initiated? (list below): No Diagnosis Differential diagnosis abdominal pain: other (See MDM) Most likely diagnosis given after review of the tests above:: see clinical impression below Admission Indicated Admission indicated?: not indicated Admission Request Was there a request for admission?: No Disposition Plan Disposition Plan: Discharge Discharge Attestation Discharge Attestation: The patient and all family members were given an opportunity to ask questions and understood the discharge instructions. Discharge instructions specifically effects, indications for sooner follow up or return to the emergency department, and the expected course of current diagnosis. Patient condition: Stable Discharge Plan Plan Patient Disposition: HOME (Self Care) Prescriptions/Referrals Prescriptions/Med Rec: No Action folic acid 1 mg Tablet 1 mg PO QDAY PNV no.95-ferrous fumarate-FA [] 28 mg iron- 800 mcg Tablet 1 tab PO QDAY sertraline [Zoloft] 25 mg Tablet 25 mg PO QDAY labetalol 100 mg Tablet 100 mg PO BID hydrocodone-acetaminophen [[place]] 5-325 mg tablet 1 tab PO Q6H MDD 4 PRN (Reason: pain) Qty: 30 0RF naproxen [Naprosyn] 500 mg tablet 500 mg PO BID Qty: 30 0RF Referrals: Hanny Gaffney PA-C [Primary Care Provider, Family Practice] - In 1 week Problem List Clinical Impression: Abdominal pain Patient/Caregiver Discharge Instructions Education Materials: Abdominal Pain Additional Instructions: Stop the antibiotic. You may take Tylenol and/or ibuprofen as needed for pain. Follow-up with your doctor. Return to ER as needed or if condition worsens. Print Language: Romanian Stand Alone Forms: Sharon Award Info., Patient Portal Info Letter
[2025-03-12 03:51] VITALS: BP 137/64; PULSE 98; RESP 18; TEMP 36.7; O2SAT 99
[2025-03-12 04:10] LABS: Alanine Aminotransferase 22 U/L (10-49); Albumin, Serum 4.9 gm/dL (3.5-5.0); Albumin/Globulin Ratio 1.6 (1.2-2.2); Alkaline Phosphatase 95 U/L (46-116); Anion Gap 14 (7-16); Aspartate Amino Transferase 21 U/L (0-34); BUN/Creatinine Ratio 13 Ratio (12-20); Bilirubin,Total 0.5 mg/dL (0.3-1.2); Blood Urea Nitrogen 14 mg/dL (9-23); Calcium 10.5 mg/dL (8.3-10.6); Calcium (Corrected) 10.5 mg/dL (8.5-10.1); Carbon Dioxide 25.6 mMol/L (20.0-31.0); Chloride 102 mMol/L (98-107); Creatinine (Component) 1.1 mg/dL (0.6-1.3); Estimated Creatinine Clearance 99.3 mL/min (>60); Globulin 3.1 gm/dL (2.3-3.5); Glucose 105 mg/dL (74-106); Lipase 30 U/L (12-53); Osmolality,Calculated 283 (275-295); Potassium 3.4 mMol/L (3.4-5.1); Procalcitonin 0.06 ng/ml (0.0-0.49); Sodium 142 mMol/L (136-145); Total Protein 8.0 gm/dL (5.7-8.2); eGFR > 60 See Note
== END 2025-03-12 03:52 | disposition home or self-care (01) ==
PROVIDERS: Physician Assistant; Emergency Provider Emergency Medicine; PCP Physician Assistant
DX: N20.0 Calculus of kidney (principal); D72.829 Elevated white blood cell count, unspecified; I10 Essential (primary) hypertension; Z87.442 Personal history of urinary calculi
CPT/HCPCS: 36415; 74176; 80053; 81001; 81025; 83605; 83690; 84145; 85025; 96372; 99284; J1885; Q0162